=== PATIENT | female | born 1975 | race Caucasian/White ===

== ENCOUNTER 2025-06-28 11:12 | Outpatient (CLI) | payer SELFPAY | END 2025-06-28 23:59 | disposition home or self-care (01) | LOC: EDBD 11:12 → RAD 11:12 | PROVIDERS: ATTEND Internal Medicine Interventional Cardiology | DX: M25.562 Pain in left knee (principal); M79.605 Pain in left leg | CPT/HCPCS: 73552; 73564-TC ==